=== PATIENT | male | born 1975 | race Caucasian/White ===

== ENCOUNTER 2021-10-12 07:29 | Emergency (ER) | payer OTHER ==
[2021-10-12 08:26] LABS: BASOPHIL 0.4 % (0-2); EOSINOPHIL 0.4 % (0-5); HCT 45.2 % (42.0-52.0); LYMPHOCYTE 19.7 % (15-48); MCH 30.7 pg (25.0-31.0); MCHC 33.2 g/dL (32.0-36.0); MCV 92.6 fL (78.0-100.0); MONOCYTE 7.5 % (0-12); MPV 9.5 fL (6.0-9.5); NEUTROPHIL 71.6 % (41-80); NRBC 0; PLT 184 K/uL (150-400); RBC 4.88 M/uL (4.70-6.00); RDW 11.6 % (11.5-14.0); WBC 5.5 K/uL (4.0-10.5)
[2021-10-12 08:43] LABS: ALBUMIN 4.2 g/dL (3.4-5.0); BILIRUBIN - TOTAL 0.4 mg/dL (0.2-1.0); BUN/CREAT RATIO (CALC) 17.9 RATIO; CREATININE 1.17 mg/dL (0.67-1.17); GLOBULIN (CALCULATION) 3.8 g/dL; POTASSIUM 4.2 mmol/L (3.5-5.1)
[2021-10-12 09:22] LABS: CORONAVIRUS 2019 SARS-COV-2 NEGATIVE (NEGATIVE); INFLUENZA A NAA NEGATIVE (NEGATIVE)
[2021-10-12] MEDS ORDERED: AUGMENTIN 875-1 EACH PO (09:59)
== END 2021-10-12 10:59 | disposition home or self-care (01) ==
LOC: FER 07:29
PROVIDERS: Emergency Medicine
DX: J01.90 Acute sinusitis, unspecified (principal); Z88.0 Allergy status to penicillin; Z88.2 Allergy status to sulfonamides; Z88.5 Allergy status to narcotic agent; Z88.8 Allergy status to other drugs, medicaments and biological substances; Z20.822 Contact with and (suspected) exposure to COVID-19
CPT/HCPCS: 36415; 71046; 80053; 84145; 85025; 87880; J0696; J7030; U0002